=== PATIENT | female | born 1970 | race Caucasian/White ===

== ENCOUNTER 2017-06-19 22:31 | Emergency (ER) | payer MEDICARE, MEDICAID ==
[2017-06-19] MEDS ORDERED: ASPIRIN 81 MG TABLET, CHEWABLE PO ONE (22:41)
--- NOTE | 2017-06-19 23:15 | RADIOLOGY REPORT (SQ) ---
EXAM DESCRIPTION: CHEST SINGLE VIEW COMPLETED DATE/TIME: 06/19/2017 11:08 pm REASON FOR STUDY: chest pain COMPARISON: None. EXAM PARAMETERS: NUMBER OF VIEWS: One view. TECHNIQUE: Single frontal radiographic view of the chest acquired. RADIATION DOSE: NA LIMITATIONS: None. FINDINGS: LUNGS AND PLEURA: No opacities, masses or pneumothorax. No pleural effusion. MEDIASTINUM AND HILAR STRUCTURES: No masses. Contour normal. HEART AND VASCULAR STRUCTURES: Heart normal in size. Normal vasculature. BONES: No acute findings. HARDWARE: None in the chest. OTHER: No other significant finding. IMPRESSION: NO ACUTE RADIOGRAPHIC FINDING IN THE CHEST. TECHNICAL DOCUMENTATION: JOB ID: [id number]
--- NOTE | 2017-06-20 01:07 | ER Document Report ---
ED General - General Chief Complaint: Shortness Of Breath Stated Complaint: BREATHING DIFFICULTY Time Seen by Provider: 06/20/17 01:05 Notes: Patient is a 46-year-old female who presents with complaint of difficulty breathing and a tightness across her chest. Patient says that she went to [place] just over week ago. When she was there she started having allergy type symptoms and congestion and felt short of breath. She then developed tightness across her chest. She went to the doctor and they did a CTA of her chest which was negative for PE but did show a lung nodule. He also worked up her heart was negative. She was discharged and told to follow-up with her primary care physician. When she came back to follow-up with her primary care physician who is arranging for an echocardiogram. She says that she is continued to have the shortness of breath. She feels as if she cannot fully expand her lungs with air. She still feels a tightness around her chest. She denies any cardiac history herself. She does have a family history of coronary disease with her mother. She denies any fevers or infections. She does have history of hypertension and obesity. No other complaints at this time. TRAVEL OUTSIDE OF THE [place] IN LAST 30 DAYS: No - Related Data Allergies/Adverse Reactions: codeine Allergy (Verified 06/19/17 23:01) Past Medical History - Social History Smoking Status: Never Smoker Frequency of alcohol use: None Drug Abuse: None Family History: Reviewed & Not Pertinent Renal/ Medical History: Denies: Hx Peritoneal Dialysis Review of Systems - Review of Systems Notes: My Normal Review Basic REVIEW OF SYSTEMS: CONSTITUTIONAL : Denies fever, chills, or sweats. Denies recent illness. EENT: Denies eye, ear, throat, or mouth pain or symptoms. Denies nasal or sinus congestion. CARDIOVASCULAR: Tightness across chest. RESPIRATORY: Shortness of breath. GASTROINTESTINAL: Denies abdominal pain. Denies nausea, vomiting, or diarrhea. Denies constipation. Last BM: GENITOURINARY: Denies difficulty urinating, painful urination, burning, frequency, or blood in urine. MUSCULOSKELETAL: Denies neck or back pain or joint pain or swelling. SKIN: Denies rash or skin lesions. NEUROLOGICAL: Denies altered mental status or loss of consciousness. Denies headache. Denies weakness or paralysis or loss of use of either side. Denies problems with gait or speech. Denies sensory or motor loss. ALL OTHER SYSTEMS REVIEWED AND NEGATIVE. Physical Exam - Vital signs Vitals: Temp Pulse Resp BP Pulse Ox 97.7 F 68 18 144/98 H 98 06/19/17 23:01 06/19/17 23:01 06/19/17 23:01 06/19/17 23:01 06/19/17 23:01 - Notes Notes: General Appearance: Well nourished, alert, cooperative, no acute distress, no obvious discomfort. Well-appearing. Vitals: reviewed, See vital signs table. Head: no swelling or tenderness to the head Eyes: PERRL, EOMI, Conjuctiva clear Mouth: No decreasd moisture Neck: Supple, no neck tenderness, No thyromegaly Lungs: No wheezing, No rales, No rhonci, No accessory muscle use, good air exchange bilaterally. Heart: Normal rate, Regular rythm, No murmur, no rub Abdomen: Normal BS, soft, No rigidity, No abdominal tenderness, No guarding, no rebound, no abdominal masses, no organomegaly Extremities: strength 5/5 in all extremities, good pulses in all extremities, no swelling or tenderness in the extremities, no edema. Skin: warm, dry, appropriate color, no rash Neuro: speech clear, oriented x 3, normal affect, responds appropriately to questions. Course - Re-evaluation Re-evalutation: 06/20/17 06:26 All patient's symptoms completely relieved with one albuterol treatment. Her lung auscultation now has a lot more air movement on it. She no longer feels tightness in her chest. Her troponin is negative. I do not suspect coronary disease being that the patient has been having symptoms for well over a week and she has a negative troponin and negative EKG. She has an upcoming appointment to have an echocardiogram performed at the primary care doctor. Although I think coronary disease is very low likelihood as a cause of her chest pain I still feel that it is appropriate for her to talk to her doctor about an outpatient stress test being that she does have risk factors including family history, obesity, and hypertension. Patient encouraged to return to ER if she has any recurrence of her symptoms or she feels unwell. Patient agrees with plan will be discharged home. Dictation of this chart was performed using voice recognition software; therefore, there may be some unintended grammatical errors. - Vital Signs Vital signs: Temp Pulse Resp BP Pulse Ox 97.7 F 68 17 129/68 H 98 06/19/17 23:01 06/19/17 23:01 06/20/17 04:03 06/20/17 04:03 06/20/17 04:03 - Laboratory Result Diagrams: 06/20/17 01:25 06/20/17 01:25 Laboratory results interpreted by me: 06/20/17 06/20/17 01:25 01:25 WBC 12.9 H Absolute Lymphocytes 5.1 H Chloride 97 L Glucose 208 H Calcium 10.6 H Direct Bilirubin 0.5 H Total Protein 8.4 H - EKG Interpretation by Me Additional EKG results interpreted by me: 06/20/17 01:06 EKG is reviewed and interpreted by me. EKG shows normal sinus rhythm with rate of [address] segment elevation or depression. Patient is a single T-wave in lead inversion in lead III. No further to the inversions. WA interval, QRS duration, QTc intervals are within normal range. No old EKG available for comparison. Discharge - Discharge Clinical Impression: Dyspnea Qualifiers: Dyspnea type: unspecified Qualified Code(s): R06.00 - Dyspnea, unspecified Condition: Good Disposition: HOME, SELF-CARE Additional Instructions: Please return to the ER if you have recurrent difficulty breathing, any recurrent chest pain, or feel unwell. His follow-up with your doctor for your scheduled echocardiogram. These also talked her about a cardiac stress test be performed outpatiently being that you do have some cardiac risk factors. I suspect that her shortness of breath and chest tightness is related to some bronchitis being that her symptoms completely resolved with one albuterol treatment here. I have written a prescription for albuterol vials for nebulizer. Prescriptions: Albuterol Sulfate [Albuterol Sulfate 2.5mg/3 mL] 2.5 mg IH Q4 PRN #20 vial PRN Reason: Forms: Return to Work
[2017-06-20] MEDS ORDERED: ALBUTEROL SULFATE 0.083% NEB 2.5 MG/3 ML AMPUL NEB ONE (01:24)
[2017-06-20] MEDS ORDERED: ONDANSETRON 4 MG TAB.RAPDIS PO ONE (01:35)
[2017-06-20] MEDS ORDERED: ONDANSETRON 4 MG TAB.RAPDIS ONE (01:39)
[2017-06-20 01:40] LABS: ABSOLUTE BASOPHILS # (AUTO) 0.1 10^3/uL (0.0-0.2); ABSOLUTE EOSINOPHILS # (AUTO) 0.1 10^3/uL (0.0-0.6); ABSOLUTE LYMPHOCYTES (AUTO) 5.1 10^3/uL (0.5-4.7); ABSOLUTE MONOCYTES (AUTO) 0.7 10^3/uL (0.1-1.4); ABSOLUTE NEUT (AUTO) 6.9 10^3/uL (1.7-8.2); EOSINOPHILS % (AUTO) 0.6 % (0-6); HEMATOCRIT 44.1 % (36.0-47.0); HEMOGLOBIN 14.7 g/dL (12.0-15.5); LYMPHOCYTES % (AUTO) 39.7 % (13-45); MEAN CORPUSCULAR HEMOGLOBIN 29.8 pg (27.0-33.4); MEAN CORPUSCULAR HGB CONC 33.2 g/dL (32.0-36.0); MEAN CORPUSCULAR VOLUME 90 fl (80-97); MONOCYTES % (AUTO) 5.4 % (3-13); RED BLOOD COUNT 4.91 10^6/uL (3.72-5.28); SEGMENTED NEUTROPHILS % (AUTO) 53.3 % (42-78); WHITE BLOOD COUNT 12.9 10^3/uL (4.0-10.5)
[2017-06-20 02:04] LABS: ALANINE AMINOTRANSFERASE 43 U/L (9-52); ALBUMIN 4.6 g/dL (3.5-5.0); ALKALINE PHOSPHATASE 94 U/L (38-126); ANION GAP 19 (5-19); ASPARTATE AMINO TRANSFERASE 27 U/L (14-36); BILIRUBIN,DIRECT 0.5 mg/dL (0.0-0.4); BILIRUBIN,TOTAL 0.5 mg/dL (0.2-1.3); BLOOD UREA NITROGEN 16 mg/dL (7-20); CALCIUM 10.6 mg/dL (8.4-10.2); CARBON DIOXIDE 26 mmol/L (22-30); CHLORIDE 97 mmol/L (98-107); CREATINE KINASE 122 U/L (30-135); CREATININE RESULT 0.61 mg/dL (0.52-1.25); GLUCOSE 208 mg/dL (75-110); POTASSIUM 3.8 mmol/L (3.6-5.0); SODIUM 141.5 mmol/L (137-145); TOTAL PROTEIN 8.4 g/dL (6.3-8.2)
[2017-06-20 02:16] LABS: CREATINE KINASE MB 0.41 ng/mL (<4.55)
[2017-06-20 02:17] LABS: TROPONIN I < 0.012 ng/mL
[2017-06-20 04:11] VITALS: BP 129/68
--- NOTE | 2017-06-20 10:24 | EKG REPORT ---
SEVERITY:- ABNORMAL ECG - SINUS RHYTHM PROBABLE LEFT VENTRICULAR HYPERTROPHY ANTERIOR Q WAVES, POSSIBLY DUE TO LVH : Confirmed by: Al Jauregui 20-Jun-2017 10:23:54
== END 2017-06-20 04:21 | disposition home or self-care (01) ==
LOC: ER 22:31
DX: R06.02 Shortness of breath (principal); R07.89 Other chest pain; I10 Essential (primary) hypertension; E66.9 Obesity, unspecified; Z68.43 Body mass index [BMI] 50.0-59.9, adult; Z82.49 Family history of ischemic heart disease and other diseases of the circulatory system
CPT/HCPCS: 93005; 94640; 99285; 36415; 82553; 82550; 85025; 80053; 84484; 71010; 93010; A9270 ×3; S0119

== ENCOUNTER 2017-10-25 11:49 | Emergency (ER) | payer MEDICARE, MEDICAID ==
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
[2017-10-25 13:42] VITALS: BP 185/95
== END 2017-10-25 13:43 | disposition home or self-care (01) ==
LOC: ER 11:49
DX: F41.9 Anxiety disorder, unspecified (principal); T74.21XA Adult sexual abuse, confirmed, initial encounter
CPT/HCPCS: 99283

== ENCOUNTER 2018-06-21 17:52 | Emergency (ER) | payer MEDICARE ==
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
[2018-06-21 19:55] LABS: ABSOLUTE EOSINOPHILS # (AUTO) 0.1 10^3/uL (0.0-0.6); ABSOLUTE LYMPHOCYTES (AUTO) 3.1 10^3/uL (0.5-4.7); ABSOLUTE MONOCYTES (AUTO) 0.9 10^3/uL (0.1-1.4); ABSOLUTE NEUT (AUTO) 5.1 10^3/uL (1.7-8.2); BASOPHILS % (AUTO) 0.3 % (0-2); EOSINOPHILS % (AUTO) 0.7 % (0-6); HEMATOCRIT 43.7 % (36.0-47.0); LYMPHOCYTES % (AUTO) 33.8 % (13-45); MEAN CORPUSCULAR HEMOGLOBIN 29.8 pg (27.0-33.4); MEAN CORPUSCULAR HGB CONC 34.3 g/dL (32.0-36.0); MEAN CORPUSCULAR VOLUME 87 fl (80-97); MONOCYTES % (AUTO) 9.3 % (3-13); PLATELET COUNT 421 10^3/uL (150-450); RED BLOOD COUNT 5.03 10^6/uL (3.72-5.28); RED CELL DISTRIBUTION WIDTH 15.4 % (11.5-14.0); SEGMENTED NEUTROPHILS % (AUTO) 55.9 % (42-78); TOTAL CELLS COUNTED % (AUTO) 100 %; WHITE BLOOD COUNT 9.1 10^3/uL (4.0-10.5)
[2018-06-21 20:00] LABS: APPEARANCE,URINE CLOUDY; BILIRUBIN,URINE NEGATIVE (NEGATIVE); CALCIUM OXALATE CRYSTALS,URINE TOO NUMEROUS TO CNT /HPF; COLOR,URINE AMBER; GLUCOSE, URINE NEGATIVE (NEGATIVE); KETONES,URINE TRACE mg/dL (NEGATIVE); LEUKOCYTE ESTERASE,URINE TRACE (NEGATIVE); NITRITE,URINE NEGATIVE (NEGATIVE); PROTEIN,URINE 30 mg/dL (NEGATIVE); URINE SPECIFIC GRAVITY 1.029
--- NOTE | 2018-06-21 20:03 | RADIOLOGY REPORT (SQ) ---
EXAM DESCRIPTION: CT HEAD WITHOUT COMPLETED DATE/TIME: 06/21/2018 7:54 pm REASON FOR STUDY: tongue numb COMPARISON: None. TECHNIQUE: Axial images acquired through the brain without intravenous contrast. Images reviewed wi th bone, brain and subdural windows. Images stored on PACS. All CT scanners at this facility use dose modulation, iterative reconstruction, and/or weight based d osing when appropriate to reduce radiation dose to as low as reasonably achievable (ALARA). [facility]: Dose Right [facility]: CareDose [facility]: Dose Right [facility]: Teradose 4D [facility]: Keystok RADIATION DOSE: CT Rad equipment meets quality standard of care and radiation dose reduction techniq ues were employed. CTDIvol: 53.2 mGy. DLP: 991 mGy-cm. mGy. LIMITATIONS: None. FINDINGS: VENTRICLES: Normal size and contour. CEREBRUM: No masses. No hemorrhage. No midline shift. No evidence for acute infarction. Normal gra y/white matter differentiation. No areas of low density in the white matter. CEREBELLUM: No masses. No hemorrhage. No alteration of density. No evidence for acute infarction. EXTRAAXIAL SPACES: No fluid collections. No masses. ORBITS AND GLOBE: No intra- or extraconal masses. Normal contour of globe without masses. CALVARIUM: No fracture. PARANASAL SINUSES: No fluid or mucosal thickening. SOFT TISSUES: No mass or hematoma. OTHER: No other significant finding. IMPRESSION: NORMAL BRAIN CT WITHOUT CONTRAST. EVIDENCE OF ACUTE STROKE: NO. COMMENT: Quality ID # [id number]: Final reports with documentation of one or more dose reduction techniques (e.g., Automated exposure control, adjustment of the mA and/or kV according to patient size, use of iterative reconstruction technique) TECHNICAL DOCUMENTATION: JOB ID: [id number] [employer]- All Rights Reserved Reading location - IP/workstation name: [email or web address] [id number]
[2018-06-21 20:14] LABS: URINE AMPHETAMINES SCREEN NEGATIVE; URINE BARBITURATES SCREEN NEGATIVE; URINE BENZODIAZEPINES SCREEN NEGATIVE; URINE COCAINE SCREEN NEGATIVE; URINE MARIJUANA (THC) SCREEN NEGATIVE; URINE METHADONE SCREEN NEGATIVE; URINE PHENCYCLIDINE SCREEN NEGATIVE
[2018-06-21 20:25] LABS: ALANINE AMINOTRANSFERASE 47 U/L (9-52); ALBUMIN 4.3 g/dL (3.5-5.0); ALKALINE PHOSPHATASE 90 U/L (38-126); ANION GAP 15 (5-19); ASPARTATE AMINO TRANSFERASE 38 U/L (14-36); BILIRUBIN,DIRECT 0.3 mg/dL (0.0-0.4); BILIRUBIN,TOTAL 0.6 mg/dL (0.2-1.3); BLOOD UREA NITROGEN 13 mg/dL (7-20); CALCIUM 9.8 mg/dL (8.4-10.2); CARBON DIOXIDE 25 mmol/L (22-30); CHLORIDE 104 mmol/L (98-107); GLUCOSE 112 mg/dL (75-110); SODIUM 143.9 mmol/L (137-145); TOTAL PROTEIN 8.2 g/dL (6.3-8.2)
[2018-06-21 20:32] LABS: ACETAMINOPHEN < 10 ug/mL (10-30); ALCOHOL < 10 mg/dL (NONE DETECTED); SALICYLATE < 1.0 mg/dL (2.0-20.0)
--- NOTE | 2018-06-21 20:40 | EKG REPORT ---
SEVERITY:- ABNORMAL ECG - ECTOPIC ATRIAL RHYTHM MARKEDLY POSTERIOR QRS AXIS VS R ARM L ARM REVERSAL ABNORMAL T, CONSIDER ISCHEMIA, LATERAL LEADS : Confirmed by: Al Jauregui 21-Jun-2018 17:39:27
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
[2018-06-22] MEDS ORDERED: TRAZODONE HCL 50 MG TABLET PO ONE (00:21)
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
[2018-06-22 10:44] VITALS: BP 125/52
--- NOTE | 2018-06-22 18:23 | PSYCHOLOGICAL NOTE ---
Psych Note - Psych Note Psych Note: Reason for consult: passive suicidal ideation Contact permissions: Osbaldo Mascorro, friend Pt into ER today via EMS with episode of dizziness. She was in front of the police station and they reported to EMS she collapsed on the ground. When EMS arrived, pt was speaking and said she has anxiety. Pt also has a seizure disorder but she doesn't think she had a seizure and EMS reports no postictal state upon their arrival. Patient states that she has been "depressed" for awhile because of family discord. Patient was previously living with her sister in [place], left there and was living with her daughter until Sunday of this past week. Patient reports that her daughter kicked her out of the house after she made a Child Protective Services report on her son in law. Patient reports that she has been "drifting" since then. Patient denies any current thoughts of suicide, explaining that "even though she feels sad, she has children and grand children to live for". Patient denies any access to weapons and was unable to get the remainder of her medicine from the daughter's house when she was kicked out. This Clinician provided patient with resource information to the [facility] (transitional housing), [facility] and the local homeless snf. Patient states that she is currently seeing a therapist at [facility] in [place] but has not been in 2 months due to transportation. Patient states that she has not been able to take her medication for the last few days, since she got kicked out of her daughters home but does plan to return to the home to get her things. Patient states that when she gets her disability check on 2017 she is going to try to find a place to live. She had been approved for a subsidized home about 2 weeks ago in [facility] but assisted her daughter with school supplies for the grand children and then not have the money needed for a down payment. Patient is unsure if that apartment is still available but plans to follow up. This Clinician left a message for collateral contact, Osbaldo Mascorro at . Patient was alert, oriented to person, place, time and circumstance. Mood is dysphoric. Patient denies any suicidal ideation but does admit that she feels sad from time to time. Patient presents with an intact reality base presentation. Thought processes are organized, linear. Eye Contact is good. Conversational speech was normal rate and tone. Intellectual abilities appear to be in average range. Attention and conversation are good. Insight, Judgment and Impulse Control is good. No Medication Recommendations at this time. Diagnosis: 296.52 (F31.32) Bipolar 1 Disorder, Current or most recent episode depressed, Moderate Impression/Plan: Patient is cleared from acute psychiatric services. Patient denies suicidal thoughts. Patient states that her primary concern at the moment is finding a home. Patient is currently has an outpatient provider in [place], [place]. This Clinician provided contact information to the patient for the local homeless snf, [facility] (Transitional Housing) and [facility]. Patient was able to articulate her intentions on finding a place to stay and then accessing her outpatient provider. Dr. Duncan was consulted and the care and management of this patient; attending physician is in agreement with recommendations and disposition.
--- NOTE | 2018-06-24 13:17 | EKG REPORT ---
SEVERITY:- ABNORMAL ECG - SINUS RHYTHM LEFT AXIS DEVIATION LEFT VENTRICULAR HYPERTROPHY : Confirmed by: Jose Elias Gallego MD 24-Jun-2018 13:16:35
== END 2018-06-22 10:54 | disposition home or self-care (01) ==
LOC: ER 17:52
DX: F41.9 Anxiety disorder, unspecified (principal); F31.9 Bipolar disorder, unspecified; T50.906A Underdosing of unspecified drugs, medicaments and biological substances, initial encounter; Z91.128 Patient's intentional underdosing of medication regimen for other reason; Z91.14 Patient's other noncompliance with medication regimen; R45.851 Suicidal ideations; R41.0 Disorientation, unspecified; I10 Essential (primary) hypertension; Z59.0 Homelessness; Z88.5 Allergy status to narcotic agent
CPT/HCPCS: 36415; 70450; 80053; 80307; 81001; 85025; 93005; 93010; 99285

== ENCOUNTER 2018-06-24 05:16 | Emergency (ER) | payer MEDICARE ==
[2018-06-24 05:33] VITALS: BP 152/87
[2018-06-24] MEDS ORDERED: LIDOCAINE 5% (700 MG) TRANSDERMAL ADH..PATCH TP ONE (07:14)
[2018-06-24] MEDS ORDERED: DIPH/PERTUSS(ACELL)/TETANUS VAC/PF 0.5 ML SYR (>=10YO) IM ONE (07:14)
[2018-06-24] MEDS ORDERED: METFORMIN HCL 500 MG TABLET PO ONE (07:15)
--- NOTE | 2018-06-24 07:18 | ER Document Report ---
HPI - HPI Patient complains to provider of: Homelessness Onset: This morning Onset/Duration: Gradual Pain Level: 1 Context: Patient presents stating that her primary reason for coming is that she is homeless and that she wants information on transitional housing. Patient states that she [facility] sitting on a binge last night and thought she heard footsteps and was concerned that she might not be alone. Patient states that she got up and left her belongings there and walked here. Patient states that she left her metformin in the backpack and she does not know if it will be there when she returns. Patient states that she has not been eating well or drinking well due to her homeless status. Patient states that because she was walking she developed a wound to her toe. Patient states she has chronic low back pain and that this is flaring up on her. Patient denies any new injury. Patient without any fever. Patient without any radiculopathy paresthesia, urinary retention or incontinence. Associated Symptoms: Other - Homelessness, sore to toe, low back pain Exacerbated by: Movement Relieved by: Denies Similar symptoms previously: No Recently seen / treated by doctor: No - ROS ROS below otherwise negative: Yes Systems Reviewed and Negative: Yes All other systems reviewed and negative - CONSTITUTIONAL Constitutional: DENIES: Fever, Chills - EENT EENT: DENIES: Sore Throat Notes: Dry mouth - NEURO Neurology: DENIES: Headache, Weakness - RESPIRATORY Respiratory: DENIES: Coughing - GASTROINTESTINAL Gastrointestinal: DENIES: Abdominal Pain, Nausea - URINARY Urinary: DENIES: Dysuria, Frequency - MUSCULOSKELETAL Musculoskeletal: REPORTS: Back Pain - DERM Skin Color: Normal Notes: Blister to toe Past Medical History - General Information source: Patient - Social History Smoking Status: Never Smoker Frequency of alcohol use: None Drug Abuse: None Occupation: None Lives with: Homeless Family History: Reviewed & Not Pertinent - Past Medical History Cardiac Medical History: Reports: Hx Hypertension Endocrine Medical History: Reports: Hx Diabetes Mellitus Type 2 - prediabetic Renal/ Medical History: Denies: Hx Peritoneal Dialysis Psychiatric Medical History: Reports: Hx Bipolar Disorder Past Surgical History: Reports: Hx Breast Surgery - RT LUMPECTOMY, Hx Cholecystectomy, Hx Orthopedic Surgery - BACK SURG, Hx Tubal Ligation Vertical Provider Document - CONSTITUTIONAL Agree With Documented VS: Yes Exam Limitations: No Limitations General Appearance: WD/WN, No Apparent Distress, Obese - Morbidly obese - INFECTION CONTROL TRAVEL OUTSIDE OF THE [place].S. IN LAST 30 DAYS: No - HEENT HEENT: Atraumatic, Normocephalic. negative: Pharyngeal Exudate, Pharyngeal Tenderness, Pharyngeal Erythema, Tympanic Membrane Red, Tympanic Membrane Bulging Notes: Shallow ulceration to right lateral side of tongue - NECK Neck: Normal Inspection, Supple. negative: Lymphadenopathy-Left, Lymphadenopathy-Right - RESPIRATORY Respiratory: Breath Sounds Normal, No Respiratory Distress, Chest Non-Tender - CARDIOVASCULAR Cardiovascular: Regular Rate, Regular Rhythm, No Murmur - GI/ABDOMEN Gastrointestinal: Abdomen Soft, Abdomen Non-Tender - BACK Back: Abnormal Inspection - Lumbar paraspinal tenderness, No step-off or deformity. negative: CVA Tenderness-Right, CVA Tenderness-Left - MUSCULOSKELETAL/EXTREMETIES Musculoskeletal/Extremeties: RHYS GARCIA - NEURO Level of Consciousness: Awake, Alert, Appropriate Motor/Sensory: No Motor Deficit - DERM Integumentary: Warm, Dry. negative: Abscess Notes: Shallow ulceration medial aspect of right second toe, no surrounding erythema Course - Re-evaluation Re-evalutation: 06/24/18 07:16 Patient acknowledges the primary reason for visit is that she is homeless and needs resource information on shelters and transitional care. - Vital Signs Vital signs: Temp Pulse Resp BP Pulse Ox 98.8 F 91 16 152/87 H 97 06/24/18 05:32 06/24/18 05:32 06/24/18 05:32 06/24/18 05:32 06/24/18 05:32 Discharge - Discharge Clinical Impression: Homelessness, Needs assistance with community resources Blister of toe Qualifiers: Encounter type: initial encounter Laterality: right Qualified Code(s): S90.424A - Blister (nonthermal), right lesser toe(s), initial encounter Diabetes Qualifiers: Diabetes mellitus type: type 2 Diabetes mellitus care home insulin use: without mash filter operator use Diabetes mellitus complication status: without complication Qualified Code(s): E11.9 - Type 2 diabetes mellitus without complications Chronic back pain Qualifiers: Back pain location: low back pain Back pain laterality: unspecified Sciatica presence: without sciatica Qualified Code(s): M54.5 - Low back pain Condition: Stable Disposition: HOME, SELF-CARE Instructions: Acetaminophen, Chronic Back Pain ([facility]), Diabetes ([facility]), Dressing Instructions for Open Wounds ([facility]), Glucophage ([facility]) Additional Instructions: Return immediately for any new or worsening symptoms Followup with your primary care provider, call tomorrow to make a followup appointment Prescriptions: Metformin HCl 1,000 mg PO BID #14 tablet Referrals: [facility] [Provider Group] - Follow up as needed
[2018-06-24] MEDS ORDERED: ACETAMINOPHEN 325 MG TABLET PO ONE (07:19)
== END 2018-06-24 08:20 | disposition home or self-care (01) ==
LOC: ER 05:16
DX: S90.424A Blister (nonthermal), right lesser toe(s), initial encounter (principal); X58.XXXA Exposure to other specified factors, initial encounter; Z59.0 Homelessness; E11.9 Type 2 diabetes mellitus without complications; G89.29 Other chronic pain; M54.5 Low back pain; I10 Essential (primary) hypertension; Z90.49 Acquired absence of other specified parts of digestive tract; Z98.51 Tubal ligation status; E66.01 Morbid (severe) obesity due to excess calories; Z23 Encounter for immunization
CPT/HCPCS: 99283; 99284; 90471; 90715; A9270 ×2

== ENCOUNTER 2018-06-24 12:05 | Emergency (ER) | payer MEDICARE ==
[2018-06-24 12:50] VITALS: BP 162/93
--- NOTE | 2018-06-24 14:43 | ER Document Report ---
ED General - General Chief Complaint: Abdominal Pain Stated Complaint: NAUSEA/DIHARREA Time Seen by Provider: 06/24/18 14:18 Notes: 47-year-old female patient presents emergency department complaining of "homelessness". Patient has long-standing history of mental health issues. Has been seen in the emergency department multiple times recently. Was reportedly seen earlier this morning and was discharged. Was sleeping in the grass across the street at 1 of the local clinics. States that she came back over here because she has no place to go. Was originally complaining of nausea and abdominal pain but she states that this has subsided. Patient denies any harm to self or others. Denies any suicidal ideation or homicidal ideation. Denies any voices or hallucinations.. TRAVEL OUTSIDE OF THE U.S. IN LAST 30 DAYS: No - HPI Onset/Duration: Gradual, Constant - Related Data Allergies/Adverse Reactions: codeine Allergy (Verified 06/24/18 12:06) Past Medical History - General Information source: Patient - Social History Smoking Status: Unknown if Ever Smoked Cigarette use (# per day): No Frequency of alcohol use: None Drug Abuse: None Lives with: Homeless Family History: Reviewed & Not Pertinent Patient has suicidal ideation: No Patient has homicidal ideation: No - Past Medical History Cardiac Medical History: Reports: Hx Hypertension Endocrine Medical History: Reports: Hx Diabetes Mellitus Type 2 - prediabetic Renal/ Medical History: Denies: Hx Peritoneal Dialysis Psychiatric Medical History: Reports: Hx Bipolar Disorder Past Surgical History: Reports: Hx Breast Surgery - RT LUMPECTOMY, Hx Cholecystectomy, Hx Orthopedic Surgery - BACK SURG, Hx Tubal Ligation Review of Systems - Review of Systems Notes: Constitutional: denies: Chills, Diaphoresis, Fever, Malaise, Weakness EENT: denies: Eye discharge, Blurred vision, Tearing, Double vision, Nose congestion, Nose discharge, Throat swelling, Mouth pain Cardiovascular: denies: Palpitations, Heart racing, Orthopnea, Dyspnea, Chest pain Respiratory: denies: Cough, Hurts to breathe, Wheezing, Shortness of breath Gastrointestinal: denies: Abdominal pain, Diarrhea, Nausea, Vomiting, Black stools, bright red blood in stool Genitourinary: denies: Burning, Dysuria, Discharge, Frequency, Flank pain, Hematuria Musculoskeletal: denies: Joint pain, Joint swelling, Muscle pain, Muscle stiffness, back pain Hematologic/Lymphatic: denies: Anemia, Easy bleeding, Easy bruising, Blood clots Neurological/Psychological: denies: Confusion, Dementia, Depression, Loss of consciousness Skin: No lesions, no masses, no skin breakdown, no abscesses Physical Exam - Vital signs Vitals: Temp Pulse Resp BP Pulse Ox 98.4 F 79 20 162/93 H 96 06/24/18 12:48 06/24/18 12:48 06/24/18 12:48 06/24/18 12:48 06/24/18 12:48 Interpretation: Normal - General General appearance: Appears well, Alert - HEENT Head: Normocephalic, Atraumatic Eyes: Normal Pupils: PERRL - Respiratory Respiratory status: No respiratory distress Chest status: Nontender Breath sounds: Normal Chest palpation: Normal - Cardiovascular Rhythm: Regular Heart sounds: Normal auscultation Murmur: No - Abdominal Inspection: Normal Distension: No distension Bowel sounds: Normal Tenderness: Nontender Organomegaly: No organomegaly - Back Back: Normal, Nontender - Extremities General upper extremity: Normal inspection, Nontender, Normal color, Normal ROM , Normal temperature General lower extremity: Normal inspection, Nontender, Normal color, Normal ROM , Normal temperature, Normal weight bearing. No: Bartolo's sign - Neurological Neuro grossly intact: Yes Cognition: Normal Orientation: AAOx4 Eh Coma Scale Eye Opening: Spontaneous Eh Coma Scale Verbal: Oriented Eh Coma Scale Motor: Obeys Commands Eh Coma Scale Total: 15 Speech: Normal Motor strength normal: LUE, RUE, LLE, RLE Sensory: Normal - Psychological Associated symptoms: Normal affect, Normal mood - Skin Skin Temperature: Warm Skin Moisture: Dry Skin Color: Normal Course - Re-evaluation Re-evalutation: 06/24/18 14:40 At this time patient is not complaining of anything other than being homeless and wanting a place to lay down. I have explained to her that we do not provide this service. I am having her psychiatric social worker supervisor speak with her. I was informed that psychiatric social worker supervisor is actually spoken to her on her prior ER visit. - Vital Signs Vital signs: Temp Pulse Resp BP Pulse Ox 98.4 F 79 20 162/93 H 96 06/24/18 12:48 06/24/18 12:48 06/24/18 12:48 06/24/18 12:48 06/24/18 12:48 Discharge - Discharge Clinical Impression: Homeless single person Condition: Good Disposition: HOME, SELF-CARE Instructions: Normal Exam and Workup ([facility]) Referrals: SAMSON BURNS II, PA-C [Primary Care Provider] - Follow up as needed [facility] [Provider Group] - Follow up as needed
== END 2018-06-24 14:52 | disposition home or self-care (01) ==
LOC: ER 12:05
DX: R10.9 Unspecified abdominal pain (principal); R11.0 Nausea; R19.7 Diarrhea, unspecified; Z59.0 Homelessness; I10 Essential (primary) hypertension; E11.9 Type 2 diabetes mellitus without complications; Z90.49 Acquired absence of other specified parts of digestive tract; Z98.51 Tubal ligation status
CPT/HCPCS: 99284

== ENCOUNTER 2018-09-29 17:32 | Emergency (ER) | payer MEDICARE, MEDICAID ==
[2018-09-29 18:20] LABS: APPEARANCE,URINE CLEAR; BILIRUBIN,URINE NEGATIVE (NEGATIVE); COLOR,URINE STRAW; GLUCOSE, URINE NEGATIVE (NEGATIVE); KETONES,URINE NEGATIVE (NEGATIVE); LEUKOCYTE ESTERASE,URINE NEGATIVE (NEGATIVE); NITRITE,URINE NEGATIVE (NEGATIVE); PROTEIN,URINE NEGATIVE (NEGATIVE); URINE SPECIFIC GRAVITY 1.008; UROBILINOGEN,URINE NEGATIVE mg/dL (<2.0)
[2018-09-29 18:41] LABS: URINE AMPHETAMINES SCREEN NEGATIVE; URINE BARBITURATES SCREEN NEGATIVE; URINE BENZODIAZEPINES SCREEN NEGATIVE; URINE COCAINE SCREEN NEGATIVE; URINE MARIJUANA (THC) SCREEN NEGATIVE; URINE METHADONE SCREEN NEGATIVE; URINE PHENCYCLIDINE SCREEN NEGATIVE
--- NOTE | 2018-09-29 18:45 | ER Document Report ---
ED Medical Screen (RME) - General Chief Complaint: Psych Problem Stated Complaint: PSYCH EVAL Time Seen by Provider: 09/29/18 18:32 Notes: Patient is a 47-year-old female with history of PTSD, bipolar disorder that presents to the emergency department for chief complaint of suicidal ideations. Patient states that she has been out of medication since April, because she cannot afford it or get transportation to pick it up, she does have diabetes and was on metformin, but has not had a medication for as long as well, she has been having suicidal ideations, and she feels scared to be home alone particularly at night, she did try to go to [facility], but they needed medical clearance prior to excepting her.. ROS: Other than noted above, the 12 point review of systems was reviewed with the patient and were negative, all pertinent findings are included in the HPI. PHYSICAL EXAMINATION: Vital signs reviewed. GENERAL: Well-appearing, well-nourished and in no acute distress. HEAD: Atraumatic, normocephalic. EYES: Pupils equal round extraocular movements intact, conjunctiva are normal. ENT: Nares patent NECK: Normal range of motion CV: Heart regular rate and rhythm LUNGS: No respiratory distress Musculoskeletal: Normal range of motion NEUROLOGICAL: Normal speech PSYCH: Pleasant, flat affect, but does answer questions appropriately MDM: Patient seen and examined for rapid initial assessment. Vital signs reviewed. A comprehensive ED assessment and evaluation of the patient, analysis of test results and completion of the medical decision making process will be conducted by additional ED providers. *Note is created using voice recognition software and may contain spelling, syntax or grammatical errors. TRAVEL OUTSIDE OF THE U.[place]. IN LAST 30 DAYS: No - Related Data Allergies/Adverse Reactions: codeine Allergy (Verified 06/24/18 12:06) Past Medical History - Social History Chew tobacco use (# tins/day): No Frequency of alcohol use: None Drug Abuse: None - Past Medical History Cardiac Medical History: Reports: Hx Hypertension Endocrine Medical History: Reports: Hx Diabetes Mellitus Type 2 - prediabetic Renal/ Medical History: Denies: Hx Peritoneal Dialysis Psychiatric Medical History: Reports: Hx Bipolar Disorder, Hx Depression Past Surgical History: Reports: Hx Breast Surgery - RT LUMPECTOMY, Hx Cholecystectomy, Hx Orthopedic Surgery - BACK SURG, Hx Tubal Ligation Physical Exam - Vital signs Vitals: Temp Pulse Resp BP Pulse Ox 98.7 F 73 17 176/98 H 98 09/29/18 18:16 09/29/18 18:16 09/29/18 18:16 09/29/18 18:16 09/29/18 18:16 Course - Vital Signs Vital signs: Temp Pulse Resp BP Pulse Ox 98.7 F 73 17 176/98 H 98 09/29/18 18:16 09/29/18 18:16 09/29/18 18:16 09/29/18 18:16 09/29/18 18:16 Doctor's Discharge - Discharge Referrals: [facility]ATY FRANCIS,[facility] [Primary Care Provider] - Follow up as needed
[2018-09-29 19:10] LABS: ABSOLUTE BASOPHILS # (AUTO) 0.1 10^3/uL (0.0-0.2); ABSOLUTE EOSINOPHILS # (AUTO) 0.1 10^3/uL (0.0-0.6); ABSOLUTE LYMPHOCYTES (AUTO) 3.1 10^3/uL (0.5-4.7); ABSOLUTE MONOCYTES (AUTO) 0.6 10^3/uL (0.1-1.4); ABSOLUTE NEUT (AUTO) 3.7 10^3/uL (1.7-8.2); BASOPHILS % (AUTO) 0.7 % (0-2); EOSINOPHILS % (AUTO) 1.4 % (0-6); HEMATOCRIT 41.3 % (36.0-47.0); HEMOGLOBIN 14.3 g/dL (12.0-15.5); LYMPHOCYTES % (AUTO) 41.3 % (13-45); MEAN CORPUSCULAR HEMOGLOBIN 30.4 pg (27.0-33.4); MEAN CORPUSCULAR HGB CONC 34.5 g/dL (32.0-36.0); MEAN CORPUSCULAR VOLUME 88 fl (80-97); MONOCYTES % (AUTO) 7.7 % (3-13); PLATELET COUNT 362 10^3/uL (150-450); RED BLOOD COUNT 4.69 10^6/uL (3.72-5.28); RED CELL DISTRIBUTION WIDTH 14.1 % (11.5-14.0); SEGMENTED NEUTROPHILS % (AUTO) 48.9 % (42-78); TOTAL CELLS COUNTED % (AUTO) 100 %; WHITE BLOOD COUNT 7.5 10^3/uL (4.0-10.5)
[2018-09-29 19:27] LABS: ALANINE AMINOTRANSFERASE 36 U/L (9-52); ALBUMIN 4.2 g/dL (3.5-5.0); ALKALINE PHOSPHATASE 71 U/L (38-126); ANION GAP 13 (5-19); ASPARTATE AMINO TRANSFERASE 32 U/L (14-36); BILIRUBIN,DIRECT 0.2 mg/dL (0.0-0.4); BILIRUBIN,TOTAL 0.4 mg/dL (0.2-1.3); BLOOD UREA NITROGEN 9 mg/dL (7-20); CALCIUM 9.8 mg/dL (8.4-10.2); CARBON DIOXIDE 26 mmol/L (22-30); CHLORIDE 103 mmol/L (98-107); GLUCOSE 103 mg/dL (75-110); SODIUM 142.4 mmol/L (137-145); TOTAL PROTEIN 7.6 g/dL (6.3-8.2)
[2018-09-29 19:28] LABS: ACETAMINOPHEN < 10 ug/mL (10-30); ALCOHOL < 10 mg/dL (NONE DETECTED); SALICYLATE < 1.0 mg/dL (2.0-20.0)
--- NOTE | 2018-09-29 20:14 | ER Document Report ---
ED General - General Chief Complaint: Psych Problem Stated Complaint: PSYCH EVAL Time Seen by Provider: 09/29/18 18:32 Notes: Patient is a 47-year-old female with a past medical history of bipolar disorder , depression, presents with passive suicidal ideation without specific plan. This has been ongoing for quite some time, not Bassem new or different today. The patient states that she was seen at [facility] earlier this morning , informed that she could be hospitalized but did require medical clearance prior to their ability to accept her. The patient has thus come to the emergency department for medical clearance. She had denies any acute medical concerns. She does not currently have any immediate complaints other than continuing to feel depressed. Nothing improves or worsens her symptoms. TRAVEL OUTSIDE OF THE [place] IN LAST 30 DAYS: No - Related Data Allergies/Adverse Reactions: codeine Allergy (Verified 06/24/18 12:06) Past Medical History - General Information source: Patient - Social History Smoking Status: Never Smoker Chew tobacco use (# tins/day): No Frequency of alcohol use: None Drug Abuse: None Lives with: Alone Family History: Reviewed & Not Pertinent Patient has suicidal ideation: Yes Patient has homicidal ideation: No - Past Medical History Cardiac Medical History: Reports: Hx Hypertension Endocrine Medical History: Reports: Hx Diabetes Mellitus Type 2 - prediabetic Renal/ Medical History: Denies: Hx Peritoneal Dialysis Psychiatric Medical History: Reports: Hx Bipolar Disorder, Hx Depression Past Surgical History: Reports: Hx Breast Surgery - RT LUMPECTOMY, Hx Cholecystectomy, Hx Orthopedic Surgery - BACK SURG, Hx Tubal Ligation Review of Systems - Review of Systems Notes: Constitutional: Negative for fever. HENT: Negative for sore throat. Eyes: Negative for visual changes. Cardiovascular: Negative for chest pain. Respiratory: Negative for shortness of breath. Gastrointestinal: Negative for abdominal pain, vomiting or diarrhea. Genitourinary: Negative for dysuria. Musculoskeletal: Negative for back pain. Skin: Negative for rash. Neurological: Negative for headaches, weakness or numbness. 10 point ROS negative except as marked above and in HPI. Physical Exam - Vital signs Vitals: Temp Pulse Resp BP Pulse Ox 98.7 F 73 17 176/98 H 98 09/29/18 18:16 09/29/18 18:16 09/29/18 18:16 09/29/18 18:16 09/29/18 18:16 Interpretation: Hypertensive Notes: PHYSICAL EXAMINATION: GENERAL: Well-appearing, well-nourished and in no acute distress. HEAD: Atraumatic, normocephalic. EYES: Pupils equal round and reactive to light, extraocular movements intact, sclera anicteric, conjunctiva are normal. ENT: nares patent, oropharynx clear without exudates. Moist mucous membranes. NECK: Normal range of motion, supple without lymphadenopathy LUNGS: Breath sounds clear to auscultation bilaterally and equal. No wheezes rales or rhonchi. HEART: Regular rate and rhythm without murmurs ABDOMEN: Soft, nontender, normoactive bowel sounds. No guarding, no rebound. No masses appreciated. EXTREMITIES: Normal range of motion, no pitting or edema. No cyanosis. NEUROLOGICAL: No focal neurological deficits. Moves all extremities spontaneously and on command. PSYCH: Normal mood, normal affect. SKIN: Warm, Dry, normal turgor, no rashes or lesions noted. Course - Re-evaluation Re-evalutation: 09/29/18 20:13 Patient presents with suicidal ideation without a specific plan that has been ongoing for several months. Off all medications currently. Multiple social stressors. Denies any acute medical complaints. Was seen at [facility] this morning, referred to the emergency department for medical clearance. Her physical examination and medical screening labs are unremarkable. She is medically cleared for evaluation and disposition per the behavioral services. We will also attempt to contact [facility], see if they do actively have a bed for the patient and for them all necessary information so that we can hopefully x-ray the patient's transfer to that facility. - Vital Signs Vital signs: Temp Pulse Resp BP Pulse Ox 98.7 F 73 17 176/98 H 98 09/29/18 18:16 09/29/18 18:16 09/29/18 18:16 09/29/18 18:16 09/29/18 18:16 - Laboratory Result Diagrams: 09/29/18 18:54 09/29/18 18:54 Laboratory results interpreted by me: 09/29/18 09/29/18 18:54 18:54 RDW 14.1 H Creatinine 0.48 L Salicylates < 1.0 L Acetaminophen < 10 L - EKG Interpretation by Me Additional EKG results interpreted by me: 09/30/18 00:38 Sinus rhythm. Rate 82. No ST elevations or depressions. QTC is 421. Discharge - Discharge Clinical Impression: Suicidal ideation Bipolar disorder Qualifiers: Active/Remission status: remission status unspecified Qualified Code(s): F31.9 - Bipolar disorder, unspecified Referrals: KATY FRANCIS,SAMSON Jacques PA-C [NO LOCAL MD] - Follow up as needed
--- NOTE | 2018-09-29 21:00 | EKG REPORT ---
SEVERITY:- NORMAL ECG - SINUS RHYTHM : Confirmed by: Jose Elias Gallego MD 29-Sep-2018 20:58:57
[2018-09-30] MEDS ORDERED: ACETAMINOPHEN 325 MG TABLET PO ONE (00:24)
[2018-09-30 07:05] VITALS: BP 153/86
--- NOTE | 2018-09-30 09:50 | ER Document Report ---
Doctor's Note Notes: Patient seen and evaluated by myself. She presented to the emergency department with passive suicidal ideations. She did not have a plan. Labs were obtained. No acute process was identified. Behavioral health was contacted. They saw and evaluated the patient. Patient is currently feeling depressed. She denies any ongoing suicidal ideations. Behavioral health is trying to get the patient placed at [facility]. Patient's vitals are stable. No issues overnight. 09/30/18 09:48 09/30/18 11:00 Patient now stating that she does not want transfer to [facility]. No suicidal or homicidal ideations. We will discharge the patient. Discharge - Discharge Clinical Impression: Suicidal ideation Bipolar disorder Qualifiers: Active/Remission status: remission status unspecified Qualified Code(s): F31.9 - Bipolar disorder, unspecified Condition: Stable Disposition: HOME, SELF-CARE Additional Instructions: You have been evaluated by both medical and behavioral health teams have been deemed appropriate for discharge. You are recommended to follow-up with your outpatient mental health provider of [facility] in 3-5 days for your continued outpatient mental health services. DEPRESSION: Your evaluation reveals that you have mental depression. While symptoms may be vague, they often include disturbance of sleep, fatigue, loss of appetite , and general loss of interest in life. While depression may be a side effect of drugs, or a reaction to a major change in your life, many cases have no known cause. If depression is acute, and related to a major loss in your life, you can expect it to clear completely with time. If you have been depressed a long time , are prone to repeated bouts of depression or low mood, or have been thinking of suicide, get help. Depression can be treated with anti-depressant medication and counselling. Long-term depression will often take a few weeks to clear, even with appropriate medication. Follow-up care is important. SUICIDAL IDEATION: Suicidal ideation is a common medical term for thoughts about suicide, which may be as detailed as a formulated plan, without the suicidal act itself. Although most people who undergo suicidal ideation do not commit suicide, some go on to make suicide attempts. The range of suicidal ideation varies greatly from fleeting to detailed planning, role playing, and unsuccessful attempts. While thoughts about suicide are common, most people do not carry out serious actions to commit suicide. Based upon your evaluation and discussion with you, we do not believe you are currently at risk to act upon your thoughts of suicide. You have agreed to return to the Emergency Department, at any time , if you feel inclined to act upon your suicidal thoughts. FOLLOW-UP CARE: If you experience worsening or a significant change in your symptoms, notify the physician immediately or return to the Emergency Department at any time for re-evaluation. Referrals: [facility] [Outside] - Follow up as needed SAMSON BURNS II, PA-C [NO LOCAL MD] - Follow up as needed
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
== END 2018-09-30 11:08 | disposition home or self-care (01) ==
LOC: ER 17:32
DX: R45.851 Suicidal ideations (principal); F31.9 Bipolar disorder, unspecified; F43.10 Post-traumatic stress disorder, unspecified; I10 Essential (primary) hypertension; Z90.49 Acquired absence of other specified parts of digestive tract; Z88.6 Allergy status to analgesic agent; Z98.51 Tubal ligation status
CPT/HCPCS: 93005; 99285; 36415; 80307 ×4; 85025; 81025; 80053; 81001; 93010; A9270

== ENCOUNTER 2018-10-21 11:32 | Emergency (ER) | payer MEDICARE, MEDICAID ==
--- NOTE | 2018-10-21 12:35 | ER Document Report ---
ED Medical Screen (RME) - General Chief Complaint: Abdominal Pain Stated Complaint: NAUSEA/DIZZINESS Time Seen by Provider: 10/21/18 12:09 TRAVEL OUTSIDE OF THE U.S. IN LAST 30 DAYS: No - Related Data Allergies/Adverse Reactions: codeine Allergy (Verified 10/21/18 11:33) Past Medical History - Social History Frequency of alcohol use: None Drug Abuse: None - Past Medical History Cardiac Medical History: Reports: Hx Hypertension Endocrine Medical History: Reports: Hx Diabetes Mellitus Type 2 - prediabetic Renal/ Medical History: Denies: Hx Peritoneal Dialysis Psychiatric Medical History: Reports: Hx Bipolar Disorder, Hx Depression Past Surgical History: Reports: Hx Breast Surgery - RT LUMPECTOMY, Hx Cholecystectomy, Hx Orthopedic Surgery - BACK SURG, Hx Tubal Ligation Physical Exam - Vital signs Vitals: Temp Pulse Resp BP Pulse Ox 97.6 F 89 22 H 137/79 H 98 10/21/18 11:52 10/21/18 11:52 10/21/18 11:52 10/21/18 11:52 10/21/18 11:52 Course - Re-evaluation Re-evalutation: 10/21/18 12:34 47-year-old female presents for a bizarre constellation of symptoms including feeling potentially . She notes some fullness through her abdomen which makes her feel uncomfortable. We will initiate a broad workup including CMP CBC lipase urinalysis with an hCG and likely CT the abdomen and pelvis for underlying issue. - Vital Signs Vital signs: Temp Pulse Resp BP Pulse Ox 97.6 F 89 22 H 137/79 H 98 10/21/18 11:52 10/21/18 11:52 10/21/18 11:52 10/21/18 11:52 10/21/18 11:52
[2018-10-21 13:04] LABS: ABSOLUTE EOSINOPHILS # (AUTO) 0.1 10^3/uL (0.0-0.6); ABSOLUTE LYMPHOCYTES (AUTO) 2.7 10^3/uL (0.5-4.7); ABSOLUTE MONOCYTES (AUTO) 0.6 10^3/uL (0.1-1.4); ABSOLUTE NEUT (AUTO) 4.7 10^3/uL (1.7-8.2); BASOPHILS % (AUTO) 0.6 % (0-2); EOSINOPHILS % (AUTO) 0.7 % (0-6); HEMATOCRIT 44.9 % (36.0-47.0); HEMOGLOBIN 15.1 g/dL (12.0-15.5); LYMPHOCYTES % (AUTO) 33.4 % (13-45); MEAN CORPUSCULAR HEMOGLOBIN 29.9 pg (27.0-33.4); MEAN CORPUSCULAR HGB CONC 33.7 g/dL (32.0-36.0); MEAN CORPUSCULAR VOLUME 89 fl (80-97); MONOCYTES % (AUTO) 7.9 % (3-13); PLATELET COUNT 362 10^3/uL (150-450); RED BLOOD COUNT 5.05 10^6/uL (3.72-5.28); RED CELL DISTRIBUTION WIDTH 13.6 % (11.5-14.0); SEGMENTED NEUTROPHILS % (AUTO) 57.4 % (42-78); TOTAL CELLS COUNTED % (AUTO) 100 %; WHITE BLOOD COUNT 8.2 10^3/uL (4.0-10.5)
[2018-10-21 13:12] LABS: APPEARANCE,URINE CLEAR; BILIRUBIN,URINE NEGATIVE (NEGATIVE); COLOR,URINE YELLOW; GLUCOSE, URINE NEGATIVE (NEGATIVE); KETONES,URINE TRACE mg/dL (NEGATIVE); LEUKOCYTE ESTERASE,URINE NEGATIVE (NEGATIVE); NITRITE,URINE NEGATIVE (NEGATIVE); PROTEIN,URINE NEGATIVE (NEGATIVE); URINE SPECIFIC GRAVITY 1.011; UROBILINOGEN,URINE NEGATIVE mg/dL (<2.0)
[2018-10-21 13:20] LABS: ALBUMIN 4.3 g/dL (3.5-5.0); ALKALINE PHOSPHATASE 84 U/L (38-126); ANION GAP 10 (5-19); ASPARTATE AMINO TRANSFERASE 28 U/L (14-36); BILIRUBIN,DIRECT 0.3 mg/dL (0.0-0.4); BILIRUBIN,TOTAL 0.4 mg/dL (0.2-1.3); BLOOD UREA NITROGEN 10 mg/dL (7-20); CARBON DIOXIDE 28 mmol/L (22-30); CHLORIDE 101 mmol/L (98-107); GLUCOSE 134 mg/dL (75-110); SODIUM 139.4 mmol/L (137-145)
[2018-10-21 13:21] LABS: ALANINE AMINOTRANSFERASE 36 U/L (9-52); LIPASE 64.2 U/L (23-300); POTASSIUM 4.2 mmol/L (3.6-5.0)
--- NOTE | 2018-10-21 13:23 | ER Document Report ---
ED General - General Mode of Arrival: Ambulatory Information source: Patient TRAVEL OUTSIDE OF THE U.S. IN LAST 30 DAYS: No <ALEXIS LAI - Last Filed: 10/21/18 13:33> <MELCHORJOSIE - Last Filed: 10/21/18 15:00> - General Chief Complaint: Abdominal Pain Stated Complaint: NAUSEA/DIZZINESS Time Seen by Provider: 10/21/18 12:09 Notes: Patient is a 47 year old female, pre-diabetic, with HTN, depression and bipolar disorder presents to the emergency department complaining of multiple symptoms including abdominal pain, abdominal tightness, abdominal pressure and cramping. Patient attributes these symptoms to being and further describes her abdominal cramping as contractions. Patient states her LMP was April 2018. Patient reports having a tubal ligation. Patient states she is currently taking Metformin, Trazodone, Abilify, Lisinopril and Depakote. (ALEXIS LAI) - Related Data Allergies/Adverse Reactions: codeine Allergy (Verified 10/21/18 11:33) Past Medical History - General Information source: Patient - Social History Smoking Status: Never Smoker Frequency of alcohol use: None Drug Abuse: None Family History: Reviewed & Not Pertinent Patient has suicidal ideation: No Patient has homicidal ideation: No - Past Medical History Cardiac Medical History: Reports: Hx Hypertension Endocrine Medical History: Reports: Hx Diabetes Mellitus Type 2 - prediabetic Psychiatric Medical History: Reports: Hx Bipolar Disorder, Hx Depression Past Surgical History: Reports: Hx Breast Surgery - RT LUMPECTOMY, Hx Cholecystectomy, Hx Orthopedic Surgery - BACK SURG, Hx Tubal Ligation <ALEXIS LAI - Last Filed: 10/21/18 13:33> Review of Systems - Review of Systems Constitutional: No symptoms reported EENT: No symptoms reported Cardiovascular: No symptoms reported Respiratory: No symptoms reported Gastrointestinal: See HPI, Abdominal pain Genitourinary: No symptoms reported Female Genitourinary: See HPI, - Suspects Musculoskeletal: No symptoms reported Skin: No symptoms reported Hematologic/Lymphatic: No symptoms reported Neurological/Psychological: No symptoms reported -: Yes All other systems reviewed and negative <ALEXIS LAI - Last Filed: 10/21/18 13:33> Physical Exam <ALEXIS LAI - Last Filed: 10/21/18 13:33> - Vital signs Vitals: Temp Pulse Resp BP Pulse Ox 97.6 F 89 22 H 137/79 H 98 10/21/18 11:52 10/21/18 11:52 10/21/18 11:52 10/21/18 11:52 10/21/18 11:52 - Notes Notes: GENERAL: Alert, interacts well. No acute distress. HEAD: Normocephalic, atraumatic. EYES: Pupils equal, round, and reactive to light. Extraocular movements intact. ENT: Oral mucosa moist, tongue midline. NECK: Full range of motion. Supple. Trachea midline. LUNGS: Clear to auscultation bilaterally, no wheezes, rales, or rhonchi. No respiratory distress. HEART: Regular rate and rhythm. No murmurs, gallops, or rubs. ABDOMEN: Soft, morbidly obese, tender to palpation to the LLQ and suprapubic region. Non-distended. Bowel sounds present in all 4 quadrants. EXTREMITIES: Moves all 4 extremities spontaneously. NEUROLOGICAL: Alert and oriented x3. Normal speech. PSYCH: Normal affect, normal mood. SKIN: Warm, dry, normal turgor. No rashes or lesions noted. (ALEXIS LAI) Course - Laboratory Result Diagrams: 10/21/18 12:43 10/21/18 12:43 <ALEXIS LAI - Last Filed: 10/21/18 13:33> - Laboratory Result Diagrams: 10/21/18 12:43 10/21/18 12:43 <JOSIE ROCHE - Last Filed: 10/21/18 15:00> - Re-evaluation Re-evalutation: 10/21/18 14:55 CBC and Chem-12 are unremarkable. Urinalysis is unremarkable and hCG is negative. CT scan abdomen pelvis is unremarkable. There is no explanation for her "" symptoms that she is complaining of. (JOSIE ROCHE) - Vital Signs Vital signs: Temp Pulse Resp BP Pulse Ox 97.6 F 89 22 H 137/79 H 98 10/21/18 11:52 10/21/18 11:52 10/21/18 11:52 10/21/18 11:52 10/21/18 11:52 - Laboratory Laboratory results interpreted by me: 12/24/18 12/24/18 11:50 12:43 Glucose 134 H Urine Ketones TRACE H Discharge <ALEXIS LAI - Last Filed: 10/21/18 13:33> <MELCHORJOSIE - Last Filed: 10/21/18 15:00> - Discharge Clinical Impression: Abdominal pain Qualifiers: Abdominal location: lower abdomen, unspecified Qualified Code(s): R10.30 - Lower abdominal pain, unspecified Condition: Stable Disposition: HOME, SELF-CARE Additional Instructions: Abdominal Pain There are many causes of abdominal pain. Pain can mean a serious problem requiring surgery (such as appendicitis). It can also be an innocent problem that goes away on its own (such as a viral infection). Often, time must pass to determine the cause of pain. The physician does not feel that hospitalization is necessary, at present. Things may change within the next 24 hours. Call the doctor or come back for re- examination if any problems occur, such as: (1) Pain that becomes more severe, steady, or becomes concentrated in one specific area. Also, pain that is more severe with movement or coughing. (2) Vomiting that persists or becomes more frequent. (3) Blood in the vomitus, urine, or bowel movements. Blood in the stool may have a tarry or black appearance. (4) Shaking chills or fever greater than 100 degrees F. (5) The abdomen becomes more distended or swollen. (6) Bowel movements cease. (7) Failure to improve as expected. Your blood work did not show any suggestion of an infectious process. The urinalysis did not show a urinary tract infection. The test was negative. The CT scan of your abdomen and pelvis did not show any infectious or inflam matory processes, or anything to explain your abdominal pain. Take the medication as prescribed for abdominal cramps over the next few days. Follow-up with a local medical provider if you do not improve. RETURN TO THE EMERGENCY ROOM IF ANY NEW OR WORSENING SYMPTOMS. Prescriptions: Dicyclomine HCl [Bentyl 20 mg Tablet] 20 mg PO QID PRN #15 tablet PRN Reason: Abdominal Cramping Scribe Attestation: 10/21/18 13:41 I personally performed the services described in the documentation, reviewed and edited the documentation which was dictated to the scribe in my presence, and it accurately records my words and actions. (JOSIE ROCHE) Scribe Documentation - Scribe Written by [place]:: Mariella Ospina, 10/21/2018 13:26 acting as scribe for :: Melchor <ALEXIS LAI - Last Filed: 10/21/18 13:33>
--- NOTE | 2018-10-21 13:47 | RADIOLOGY REPORT (SQ) ---
EXAM DESCRIPTION: CT ABD/PELVIS NO ORAL OR IV COMPLETED DATE/TIME: 10/21/2018 1:35 pm REASON FOR STUDY: Suprapubic and left lower quadrant abdominal pain COMPARISON: None. TECHNIQUE: CT scan of the abdomen and pelvis performed without intravenous or oral contrast. Images reviewed with lung, soft tissue, and bone windows. Reconstructed coronal and sagittal MPR images revi ewed. All images stored on PACS. All CT scanners at this facility use dose modulation, iterative reconstruction, and/or weight based d osing when appropriate to reduce radiation dose to as low as reasonably achievable (ALARA). [facility]: Dose Right [facility]: CareDose [facility]: Dose Right [facility]: Teradose 4D [facility]: Smart [employer] RADIATION DOSE: CT Rad equipment meets quality standard of care and radiation dose reduction techniq ues were employed. CTDIvol: 19.2 mGy. DLP: 1068 mGy-cm.mGy. LIMITATIONS: None. FINDINGS: LOWER CHEST: No significant findings. No nodules or infiltrates. NON-CONTRASTED LIVER, SPLEEN, ADRENALS: Evaluation limited by lack of IV contrast. No identified sign ificant masses. PANCREAS: No masses. No peripancreatic inflammatory changes. GALLBLADDER: Surgically absent. RIGHT KIDNEY AND URETER: No suspicious masses. Assessment limited by lack of IV contrast. No signif icant calcifications. No hydronephrosis or hydroureter. LEFT KIDNEY AND URETER: No suspicious masses. Assessment limited by lack of IV contrast. No signifi cant calcifications. No hydronephrosis or hydroureter. AORTA AND RETROPERITONEUM: No aneurysm. No retroperitoneal masses or adenopathy. BOWEL AND PERITONEAL CAVITY: Few scattered colonic diverticula. No obvious masses or inflammatory ch anges. No free fluid. APPENDIX: Normal. PELVIS, BLADDER, AND ABDOMINAL WALL:No abnormal masses. No free fluid. Bladder normal. BONES: No significant findings. OTHER: No other significant finding. IMPRESSION: NO SIGNIFICANT OR ACUTE PROCESS IN THE ABDOMEN OR PELVIS. COMMENT: Quality ID # [id number]: Final reports with documentation of one or more dose reduction techniques (e.g., Automated exposure control, adjustment of the mA and/or kV according to patient size, use of iterative reconstruction technique) TECHNICAL DOCUMENTATION: JOB ID: [id number] [employer]- All Rights Reserved Reading location - IP/workstation name: [email or web address]
[2018-10-21 15:13] VITALS: BP 135/75
== END 2018-10-21 15:13 | disposition home or self-care (01) ==
LOC: ER 11:32
DX: R10.32 Left lower quadrant pain (principal); R11.2 Nausea with vomiting, unspecified; I10 Essential (primary) hypertension; R73.03 Prediabetes; F31.9 Bipolar disorder, unspecified; Z98.51 Tubal ligation status; Z88.6 Allergy status to analgesic agent
CPT/HCPCS: 36415; 74176; 80053; 81001; 81025; 83690; 85025; 99284

== ENCOUNTER 2019-06-04 17:38 | Emergency (ER) | payer MEDICARE, MEDICAID ==
[2019-06-04 18:02] VITALS: BP 169/94
--- NOTE | 2019-06-04 18:34 | ER Document Report ---
ED Medical Screen (RME) - General Chief Complaint: Vaginal Bleeding Stated Complaint: VAGINAL BLEEDING Time Seen by Provider: 06/04/19 18:32 Mode of Arrival: Medic Information source: Patient TRAVEL OUTSIDE OF THE U.[place]. IN LAST 30 DAYS: No - Related Data Allergies/Adverse Reactions: codeine Adverse Reaction (Verified 06/04/19 17:48) Past Medical History - Past Medical History Cardiac Medical History: Reports: Hx Hypertension Endocrine Medical History: Reports: Hx Diabetes Mellitus Type 2 - prediabetic Renal/ Medical History: Denies: Hx Peritoneal Dialysis Psychiatric Medical History: Reports: Hx Bipolar Disorder, Hx Depression Past Surgical History: Reports: Hx Breast Surgery - RT LUMPECTOMY, Hx Cholecystectomy, Hx Orthopedic Surgery - BACK SURG, Hx Tubal Ligation Physical Exam - Vital signs Vitals: Temp Pulse Resp BP Pulse Ox 98.3 F 98 16 169/94 H 95 06/04/19 18:00 06/04/19 18:00 06/04/19 18:00 06/04/19 18:00 06/04/19 18:00 Course - Vital Signs Vital signs: Temp Pulse Resp BP Pulse Ox 98.3 F 98 16 169/94 H 95 06/04/19 18:00 06/04/19 18:00 06/04/19 18:00 06/04/19 18:00 06/04/19 18:00
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
[2019-06-04 19:12] LABS: ABSOLUTE BASOPHILS # (AUTO) 0.1 10^3/uL (0.0-0.2); ABSOLUTE EOSINOPHILS # (AUTO) 0.1 10^3/uL (0.0-0.6); ABSOLUTE LYMPHOCYTES (AUTO) 2.7 10^3/uL (0.5-4.7); ABSOLUTE MONOCYTES (AUTO) 0.5 10^3/uL (0.1-1.4); EOSINOPHILS % (AUTO) 1.1 % (0-6); HEMOGLOBIN 15.1 g/dL (12.0-15.5); LYMPHOCYTES % (AUTO) 36.9 % (13-45); MEAN CORPUSCULAR HEMOGLOBIN 29.7 pg (27.0-33.4); MEAN CORPUSCULAR HGB CONC 33.6 g/dL (32.0-36.0); MEAN CORPUSCULAR VOLUME 89 fl (80-97); MONOCYTES % (AUTO) 6.8 % (3-13); PLATELET COUNT 335 10^3/uL (150-450); RED BLOOD COUNT 5.09 10^6/uL (3.72-5.28); RED CELL DISTRIBUTION WIDTH 13.2 % (11.5-14.0); SEGMENTED NEUTROPHILS % (AUTO) 54.2 % (42-78); TOTAL CELLS COUNTED % (AUTO) 100 %; WHITE BLOOD COUNT 7.3 10^3/uL (4.0-10.5)
[2019-06-04 19:29] LABS: ALBUMIN 4.4 g/dL (3.5-5.0); ALKALINE PHOSPHATASE 71 U/L (38-126); ANION GAP 10 (5-19); ASPARTATE AMINO TRANSFERASE 39 U/L (14-36); BILIRUBIN,DIRECT 0.3 mg/dL (0.0-0.4); BILIRUBIN,TOTAL 0.6 mg/dL (0.2-1.3); BLOOD UREA NITROGEN 16 mg/dL (7-20); CALCIUM 9.8 mg/dL (8.4-10.2); CARBON DIOXIDE 26 mmol/L (22-30); CHLORIDE 102 mmol/L (98-107); GLUCOSE 125 mg/dL (75-110); POTASSIUM 4.8 mmol/L (3.6-5.0); TOTAL PROTEIN 7.8 g/dL (6.3-8.2)
[2019-06-04 19:46] LABS: ACETAMINOPHEN < 10 ug/mL (10-30); ALCOHOL < 10 mg/dL (NONE DETECTED); SALICYLATE < 1.0 mg/dL (2.0-20.0)
[2019-06-04] MEDS ORDERED: NORMAL SALINE 1000 ML 1,000 ML IV ONE (20:22)
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
[2019-06-04 20:30] LABS: APPEARANCE,URINE CLOUDY; BILIRUBIN,URINE NEGATIVE (NEGATIVE); CALCIUM OXALATE CRYSTALS,URINE TOO NUMEROUS TO CNT /HPF; GLUCOSE, URINE NEGATIVE (NEGATIVE); KETONES,URINE NEGATIVE (NEGATIVE); LEUKOCYTE ESTERASE,URINE NEGATIVE (NEGATIVE); NITRITE,URINE NEGATIVE (NEGATIVE); PROTEIN,URINE NEGATIVE (NEGATIVE); URINE SPECIFIC GRAVITY 1.029; UROBILINOGEN,URINE NEGATIVE mg/dL (<2.0)
[2019-06-04 20:31] LABS: COLOR,URINE YELLOW
[2019-06-04 20:41] LABS: URINE AMPHETAMINES SCREEN NEGATIVE; URINE BARBITURATES SCREEN NEGATIVE; URINE BENZODIAZEPINES SCREEN NEGATIVE; URINE COCAINE SCREEN NEGATIVE; URINE MARIJUANA (THC) SCREEN NEGATIVE; URINE METHADONE SCREEN NEGATIVE; URINE PHENCYCLIDINE SCREEN NEGATIVE
--- NOTE | 2019-06-04 20:52 | RADIOLOGY REPORT (SQ) ---
EXAM DESCRIPTION: US PELVIS TRANSVAGINAL COMPLETED DATE/TME: 06/04/2019 18:37 CLINICAL HISTORY: 48 years Female pelvic/lower abd pain, bleeding COMPARISON: None. TECHNIQUE: Transvaginal duplex imaging performed to evaluate the pelvis. FINDINGS: The uterus measures 8 x 4 cm. Endometrium is slightly thickened measuring 1.5 cm. Cervix measures 2.4 cm. Neither ovary is visualized. Study is limited by body habitus. IMPRESSION: Mildly thickened endometrium measuring 1.5 cm Neither ovary is visualized
--- NOTE | 2019-06-05 08:02 | EKG REPORT ---
SEVERITY:- ABNORMAL ECG - SINUS RHYTHM LEFT ANTERIOR FASCICULAR BLOCK LEFT VENTRICULAR HYPERTROPHY : Confirmed by: Jose Elias Gallego MD 05-Jun-2019 08:00:19
== END 2019-06-04 22:47 | disposition home or self-care (01) ==
LOC: ER 17:38
DX: N93.8 Other specified abnormal uterine and vaginal bleeding (principal); R10.30 Lower abdominal pain, unspecified; E66.01 Morbid (severe) obesity due to excess calories; I10 Essential (primary) hypertension; E11.9 Type 2 diabetes mellitus without complications; Z90.49 Acquired absence of other specified parts of digestive tract; Z88.6 Allergy status to analgesic agent; Z98.51 Tubal ligation status
CPT/HCPCS: 93005; 99284; 36415; 80307 ×4; 84702; 83690; 85025; 80053; 81001; 76830; 93010; J7030; 96360

== ENCOUNTER 2020-11-03 08:11 | Emergency (ER) | payer MEDICARE, MEDICAID ==
[2020-11-03 08:18] VITALS: BP 148/93
== END 2020-11-03 11:37 | disposition left against medical advice (07) ==
LOC: ER 08:11
DX: Z53.21 Procedure and treatment not carried out due to patient leaving prior to being seen by health care provider (principal)